=== PATIENT | male | born 1990 | race African-American/Black ===

== ENCOUNTER 2018-09-11 13:47 | Emergency (ER) | payer SELFPAY ==
[2018-09-11] MEDS ORDERED: hydrOXYzine 25 MG TAB ONE (13:49)
[2018-09-11] MEDS ORDERED: methylPREDNISolone Sod Succ/PF 125 MG/2 ML VIAL ONE (13:49)
[2018-09-11] MEDS ORDERED: Famotidine 20 MG TAB ONE (13:49)
== END 2018-09-11 15:11 | disposition home or self-care (01) ==
LOC: BURERS 13:47
DX: T78.40XA Allergy, unspecified, initial encounter (principal); F32.9 Major depressive disorder, single episode, unspecified; I10 Essential (primary) hypertension; F17.210 Nicotine dependence, cigarettes, uncomplicated; Z79.899 Other long term (current) drug therapy
CPT/HCPCS: 96372; 99283; J2930